=== PATIENT | male | born 1945 | race Caucasian/White ===

== ENCOUNTER 2017-12-02 10:00 | Emergency (ER) | payer MEDICARE, OTHER ==
[~2017-12-02] VITALS: Ht 167.6 cm; Wt 67.1 kg
[~2017-12-02 10:00] MED LIST: Amlodipine Besyl5 MG PO; Bactrim Ds Tab1 EACH PO; CELECOXIB200 MG PO; CYCL10 PO; LISI20 PO; Mupirocin22 GM TP
[2017-12-02 11:16] LABS: Bilirubin, Urine Neg (Neg); Blood, Urine 1+ (Neg); Glucose Qualitative, Urine Neg (Neg); Ketones, Urine 3+ (Neg); Leukocyte Esterase, Urine 1+ (Neg); Nitrite, Urine Neg (Neg); Protein, Urine Neg (Neg); Urobilinogen, Urine NORM (Normal)
[2017-12-02 11:37] LABS: Appearance, Urine Clear (Clear); Color, Urine Yellow (P-Yellow)
[2017-12-02 11:38] LABS: Bacteria Not Seen /hpf; Red Blood Cells, Urine 0-2 /hpf (0-2); Squamous Epithelial Cells Rare /hpf (Few)
[2017-12-02 11:44] LABS: U Amphetamine Screen Not Detected; U Barbituate Screen Not Detected; U Benzodiazapine Screen Not Detected; U Buprenorphine Screen Not Detected; U Cannabinoids Screen Not Detected; U Cocaine Screen Not Detected; U Methadone Screen Not Detected; U Methamphetamine Screen Not Detected; U Opiates Screen Not Detected; U Oxycodone Screen Not Detected; U Phencyclidine Screen Not Detected; U Propoxyphene Screen Not Detected
[2017-12-02 11:52] LABS: BASOPHILS ABSOLUTE AUTO 0.04 K/mm3 (0.00-0.23); BASOPHILS PERCENT AUTO 0 % (0-2); EOSINOPHILS PERCENT AUTO 1 % (0-6); Hematocrit 46.6 % (37.0-53.0); Hemoglobin 15.2 g/dL (13.5-17.5); IMMATURE GRAN ABSOLUTE AUTO 0.04 K/mm3 (0.00-0.10); IMMATURE GRAN PERCENT AUTO 0 % (0-1); LYMPHOCYTES ABSOLUTE AUTO 1.71 K/mm3 (0.84-5.20); LYMPHOCYTES PERCENT AUTO 15 % (21-46); MONOCYTES ABSOLUTE AUTO 0.72 K/mm3 (0.16-1.47); MONOCYTES PERCENT AUTO 6 % (4-13); Mean Corpuscular HGB 29.5 pg (26.0-34.0); Mean Corpuscular HGB Conc 32.6 g/dL (31.5-36.5); Mean Corpuscular Volume 91 fL (80-100); Mean Platelet Volume 10.4 fL (9.1-12.4); NEUTROPHILS ABSOLUTE AUTO 8.89 K/mm3 (1.96-9.15); NEUTROPHILS PERCENT AUTO 77 % (41-73); Platelet Count 321 K/mm3 (150-400); RDW Coefficient Variation 11.8 % (11.7-14.2); RDW Standard Deviation 39.3 fL (35.1-46.3); Red Blood Cell Count 5.15 M/mm3 (4.30-5.90)
[2017-12-02 12:02] LABS: Alanine Aminotransfer (ALT/SGP 15 U/L (12-78); Albumin, Blood 3.7 g/dL (3.4-5.0); Alk Phos 114 U/L (50-136); Anion Gap 9 mmol/L (6-16); Aspartate Aminotrans (AST/SGOT 17 U/L (12-37); Bilirubin, Total 0.6 mg/dL (0.1-1.0); Blood Urea Nitrogen 10 mg/dL (8-24); Bun/Creatinine Ratio 12.5 (12.0-20.0); CO2, Blood 24 mmol/L (21-32); Calcium, Blood 8.9 mg/dL (8.5-10.1); Chloride, Blood 107 mmol/L (98-108); Ethanol (Alcohol), Blood, Med <3 mg/dL; Globulin, Blood 3.7 g/dL (2.2-4.0); Glomerular Filtration Rate >60 (60-); Glucose, Blood 133 mg/dL (70-99); Magnesium, Blood 2.3 mg/dL (1.6-2.4); Potassium, Blood 3.6 mmol/L (3.5-5.5); Sodium, Blood 140 mmol/L (136-145); Total Protein, Blood 7.4 g/dL (6.4-8.2)
== END 2017-12-02 13:02 | disposition home or self-care (01) ==
LOC: ER 10:00
PROVIDERS: Emergency Medicine
DX: F17.200 Nicotine dependence, unspecified, uncomplicated (principal); F12.10 Cannabis abuse, uncomplicated; F10.10 Alcohol abuse, uncomplicated; Z86.73 Personal history of transient ischemic attack (TIA), and cerebral infarction without residual deficits; Z91.030 Bee allergy status; Z79.899 Other long term (current) drug therapy; Z79.2 Long term (current) use of antibiotics
CPT/HCPCS: 70450; 71045; 80053; 81001; 83735; 85025; 87086; 93005; 93010; G0480; J7030

== ENCOUNTER 2018-01-06 16:20 | Inpatient (IN) | payer MEDICARE, OTHER ==
[~2018-01-06] VITALS: Ht 180.3 cm; Wt 63.1 kg
[~2018-01-06 16:20] MED LIST changes: +AMLO5 PT; +ASPI81CH PO; +ATOR40TA PT; +CLOP75 PT; +MODA200 PO
[2018-01-06] MEDS ORDERED: MELA3 PO (16:33)
[2018-01-06] MEDS ORDERED: MIRT15 PO (16:33)
[2018-01-06] MEDS ORDERED: BISA10S PR (16:34)
[2018-01-06] MEDS ORDERED: ALBU3IS INH (16:34)
[2018-01-06] MEDS ORDERED: CVS DISPOSABLE399 ML PR (16:35)
[2018-01-06] MEDS ORDERED: Milk Of Ma400 MG/5 M PO (16:37)
[2018-01-06 18:18] LABS: BASOPHILS ABSOLUTE AUTO 0.05 K/mm3 (0.00-0.23); BASOPHILS PERCENT AUTO 1 % (0-2); EOSINOPHILS ABSOLUTE AUTO 0.64 K/mm3 (0.00-0.68); EOSINOPHILS PERCENT AUTO 8 % (0-6); Hematocrit 43.4 % (37.0-53.0); Hemoglobin 14.1 g/dL (13.5-17.5); IMMATURE GRAN ABSOLUTE AUTO 0.02 K/mm3 (0.00-0.10); IMMATURE GRAN PERCENT AUTO 0 % (0-1); LYMPHOCYTES ABSOLUTE AUTO 1.71 K/mm3 (0.84-5.20); LYMPHOCYTES PERCENT AUTO 21 % (21-46); MONOCYTES ABSOLUTE AUTO 0.74 K/mm3 (0.16-1.47); MONOCYTES PERCENT AUTO 9 % (4-13); Mean Corpuscular HGB 29.8 pg (26.0-34.0); Mean Corpuscular HGB Conc 32.5 g/dL (31.5-36.5); Mean Corpuscular Volume 92 fL (80-100); NEUTROPHILS ABSOLUTE AUTO 4.95 K/mm3 (1.96-9.15); NEUTROPHILS PERCENT AUTO 61 % (41-73); RDW Standard Deviation 40.2 fL (35.1-46.3); Red Blood Cell Count 4.73 M/mm3 (4.30-5.90); White Blood Cell Count 8.11 K/mm3 (4.00-11.30)
[2018-01-06 18:32] LABS: Alanine Aminotransfer (ALT/SGP 33 U/L (12-78); Albumin, Blood 3.3 g/dL (3.4-5.0); Albumin/Globulin Ratio 0.8 (0.8-1.8); Alk Phos 142 U/L (50-136); Anion Gap 8 mmol/L (6-16); Aspartate Aminotrans (AST/SGOT 25 U/L (12-37); Bilirubin, Total 0.5 mg/dL (0.1-1.0); Blood Urea Nitrogen 15 mg/dL (8-24); Bun/Creatinine Ratio 23.1 (12.0-20.0); CO2, Blood 30 mmol/L (21-32); Calcium, Blood 9.2 mg/dL (8.5-10.1); Chloride, Blood 103 mmol/L (98-108); Creatinine, Blood 0.65 mg/dL (0.60-1.20); Globulin, Blood 4.1 g/dL (2.2-4.0); Glomerular Filtration Rate >60 (60-); Glucose, Blood 119 mg/dL (70-99); Potassium, Blood 3.8 mmol/L (3.5-5.5); Sodium, Blood 141 mmol/L (136-145); Total Protein, Blood 7.4 g/dL (6.4-8.2)
[2018-01-06 19:14] LABS: Mean Platelet Volume 12.3 fL (9.1-12.4); Platelet Count 193 K/mm3 (150-400)
[2018-01-07 04:31] LABS: Hematocrit 39.7 % (37.0-53.0); Hemoglobin 12.7 g/dL (13.5-17.5); Mean Corpuscular HGB 28.9 pg (26.0-34.0); Mean Corpuscular Volume 90 fL (80-100); Mean Platelet Volume 12.2 fL (9.1-12.4); Platelet Count 198 K/mm3 (150-400); RDW Coefficient Variation 11.9 % (11.7-14.2); RDW Standard Deviation 39.8 fL (35.1-46.3); Red Blood Cell Count 4.39 M/mm3 (4.30-5.90)
[2018-01-07] MEDS ORDERED: CALMOSEPTINE O3.5 GM TOP (04:36)
[2018-01-07 04:52] LABS: Alanine Aminotransfer (ALT/SGP 27 U/L (12-78); Albumin, Blood 2.7 g/dL (3.4-5.0); Albumin/Globulin Ratio 0.8 (0.8-1.8); Alk Phos 126 U/L (50-136); Anion Gap 5 mmol/L (6-16); Aspartate Aminotrans (AST/SGOT 18 U/L (12-37); Bilirubin, Total 0.5 mg/dL (0.1-1.0); Blood Urea Nitrogen 14 mg/dL (8-24); Bun/Creatinine Ratio 18.2 (12.0-20.0); CO2, Blood 28 mmol/L (21-32); Calcium, Blood 8.3 mg/dL (8.5-10.1); Chloride, Blood 108 mmol/L (98-108); Creatinine, Blood 0.77 mg/dL (0.60-1.20); Globulin, Blood 3.6 g/dL (2.2-4.0); Glomerular Filtration Rate >60 (60-); Glucose, Blood 128 mg/dL (70-99); Potassium, Blood 3.8 mmol/L (3.5-5.5); Sodium, Blood 141 mmol/L (136-145); Total Protein, Blood 6.3 g/dL (6.4-8.2)
[2018-01-09 05:04] LABS: Anion Gap 6 mmol/L (6-16); Blood Urea Nitrogen 16 mg/dL (8-24); Bun/Creatinine Ratio 20.2 (12.0-20.0); CO2, Blood 27 mmol/L (21-32); Calcium, Blood 7.9 mg/dL (8.5-10.1); Chloride, Blood 106 mmol/L (98-108); Creatinine, Blood 0.79 mg/dL (0.60-1.20); Glomerular Filtration Rate >60 (60-); Glucose, Blood 166 mg/dL (70-99); Magnesium, Blood 2.2 mg/dL (1.6-2.4); Phosphorus, Blood 2.9 mg/dL (2.5-4.9); Potassium, Blood 3.6 mmol/L (3.5-5.5); Sodium, Blood 139 mmol/L (136-145); Triglycerides 224 mg/dL (30-160)
[2018-01-10 04:58] LABS: Anion Gap 5 mmol/L (6-16); Blood Urea Nitrogen 12 mg/dL (8-24); Bun/Creatinine Ratio 17.5 (12.0-20.0); CO2, Blood 30 mmol/L (21-32); Calcium, Blood 8.6 mg/dL (8.5-10.1); Chloride, Blood 101 mmol/L (98-108); Creatinine, Blood 0.69 mg/dL (0.60-1.20); Glomerular Filtration Rate >60 (60-); Glucose, Blood 177 mg/dL (70-99); Magnesium, Blood 2.3 mg/dL (1.6-2.4); Phosphorus, Blood 3.1 mg/dL (2.5-4.9); Potassium, Blood 3.4 mmol/L (3.5-5.5); Sodium, Blood 136 mmol/L (136-145)
[2018-01-11 05:37] LABS: Anion Gap 6 mmol/L (6-16); Blood Urea Nitrogen 15 mg/dL (8-24); Bun/Creatinine Ratio 24.5 (12.0-20.0); CO2, Blood 28 mmol/L (21-32); Calcium, Blood 8.6 mg/dL (8.5-10.1); Chloride, Blood 102 mmol/L (98-108); Creatinine, Blood 0.61 mg/dL (0.60-1.20); Glomerular Filtration Rate >60 (60-); Glucose, Blood 163 mg/dL (70-99); Magnesium, Blood 2.3 mg/dL (1.6-2.4); Phosphorus, Blood 3.4 mg/dL (2.5-4.9); Potassium, Blood 3.8 mmol/L (3.5-5.5); Sodium, Blood 136 mmol/L (136-145)
[2018-01-14 05:49] LABS: Anion Gap 7 mmol/L (6-16); Blood Urea Nitrogen 19 mg/dL (8-24); CO2, Blood 27 mmol/L (21-32); Calcium, Blood 8.3 mg/dL (8.5-10.1); Chloride, Blood 104 mmol/L (98-108); Creatinine, Blood 0.79 mg/dL (0.60-1.20); Glomerular Filtration Rate >60 (60-); Glucose, Blood 181 mg/dL (70-99); Magnesium, Blood 2.2 mg/dL (1.6-2.4); Phosphorus, Blood 3.7 mg/dL (2.5-4.9); Potassium, Blood 3.8 mmol/L (3.5-5.5); Sodium, Blood 138 mmol/L (136-145)
[2018-01-14] MEDS ORDERED: HYDR1TAB94 PO (12:07)
== END 2018-01-14 14:16 | DRG 57 ==
LOC: ER 16:20 → MEDS 16:21 → EDPENDDIS 01-14 11:06 → ENPENDDIS 01-14 11:06 → MEDS 01-14 14:16
PROVIDERS: Emergency Medicine; Internal Medicine; Internal Medicine Gastroenterology
PROC: 0DJ08ZZ Inspection of Upper Intestinal Tract, Via Natural or Artificial Opening Endoscopic (ICD-10-PCS; 2018-01-12)
PROC: 0DH63UZ Insertion of Feeding Device into Stomach, Percutaneous Approach (ICD-10-PCS; principal; 2018-01-12 16:00)
DX: I69.391 Dysphagia following cerebral infarction (principal); I69.351 Hemiplegia and hemiparesis following cerebral infarction affecting right dominant side; E86.0 Dehydration; E11.9 Type 2 diabetes mellitus without complications; I10 Essential (primary) hypertension; E78.5 Hyperlipidemia, unspecified; M10.9 Gout, unspecified; G40.909 Epilepsy, unspecified, not intractable, without status epilepticus; M19.90 Unspecified osteoarthritis, unspecified site; Z79.82 Long term (current) use of aspirin; Z87.891 Personal history of nicotine dependence; I69.320 Aphasia following cerebral infarction; R26.89 Other abnormalities of gait and mobility; R13.12 Dysphagia, oropharyngeal phase; Z51.5 Encounter for palliative care; I77.9 Disorder of arteries and arterioles, unspecified
CPT/HCPCS: 36415; 74230; 80048; 80053; 82947; 83735; 84100; 84478; 85025; 85027; 92611; 93005; 93010; 96360; 96361; 99285-25; C1769; G8996; G8997; G8998; J0690; J1650; J2405; J3010; J7030; J7120

== ENCOUNTER → 2018-04-30 | Outpatient (CLI) | payer MEDICARE, OTHER ==
[~2018-04-30] MED LIST changes: +ACET325 PT; +ALBU2.5V5 INH; +ALBU3IS INH; +AMLO5 PO; +ATROPINE 0.01%-10 ML SL; +BISA10S PR; +CALMOSEPTINE O3.5 GM TOP; +CLOP75 PO; +CVS DISPOSABLE399 ML PR; +Fleet Enema132 ML PR; +GAVILAX17 GM PO; +HYDR1TAB94 PO; +LISI20 PT; +LORA1 PO; +LORA2L IV; +MELA3 PO; +MELA3 PT; +METO10 PO; +MIRT15 PO; +MORP20L SL; +MUCINEX FAST-M180 M3 PT; +Milk Of Ma400 MG/5 M PO; +Milk Of Ma400 MG/5 M PT; +Miralax17 GM PT; +Mucinex600 MG PT; +ONDA8 PT; +ONDANSETRON IV; +PARO20 PO; +PARO20 PT; +PROM25S PR; +Transderm-Scop1 EACH TOP; +Zithromax200 MG/5 M PT
[2018-04-30 13:17] LABS: Hematocrit 47.7 % (37.0-53.0); Hemoglobin 15.4 g/dL (13.5-17.5); Mean Corpuscular HGB 30.5 pg (26.0-34.0); Mean Corpuscular HGB Conc 32.3 g/dL (31.5-36.5); Mean Corpuscular Volume 95 fL (80-100); Platelet Count 288 K/mm3 (150-400); RDW Coefficient Variation 12.8 % (11.7-14.2); RDW Standard Deviation 44.1 fL (35.1-46.3); Red Blood Cell Count 5.05 M/mm3 (4.30-5.90); White Blood Cell Count 22.76 K/mm3 (4.00-11.30)
[2018-04-30 13:22] LABS: Appearance, Urine Clear (Clear); Bilirubin, Urine Neg (Neg); Blood, Urine 1+ (Neg); Color, Urine Yellow (P-Yellow); Glucose Qualitative, Urine Neg (Neg); Ketones, Urine Neg (Neg); Leukocyte Esterase, Urine Neg (Neg); Nitrite, Urine Neg (Neg); Protein, Urine 2+ (Neg); Specific Gravity, Urine 1.015 (1.003-1.022); Urobilinogen, Urine NORM (Normal); pH, Urine 6.5 (5.0-8.0)
[2018-04-30 13:30] LABS: Anion Gap 6 mmol/L (6-16); Blood Urea Nitrogen 15 mg/dL (8-24); Bun/Creatinine Ratio 19.9 (12.0-20.0); CO2, Blood 32 mmol/L (21-32); Calcium, Blood 8.8 mg/dL (8.5-10.1); Chloride, Blood 102 mmol/L (98-108); Creatinine, Blood 0.75 mg/dL (0.60-1.20); Glomerular Filtration Rate >60 (60-); Glucose, Blood 156 mg/dL (70-99); Potassium, Blood 3.9 mmol/L (3.5-5.5); Sodium, Blood 140 mmol/L (136-145)
[2018-04-30 13:45] LABS: Bacteria Not Seen /hpf; Mucus Light ({null, 0-Heavy}); Squamous Epithelial Cells Rare /hpf (Few); White Blood Cells, Urine 0-2 /hpf (0-5)
== END | disposition home or self-care (01) ==
LOC: EDSTATUS 10:56 → LAB UVN 13:07
PROVIDERS: Family Medicine
DX: E78.5 Hyperlipidemia, unspecified (principal); N39.0 Urinary tract infection, site not specified; I73.9 Peripheral vascular disease, unspecified; E11.9 Type 2 diabetes mellitus without complications; R11.10 Vomiting, unspecified
CPT/HCPCS: 80048; 81001; 85027; 87086

== ENCOUNTER → 2018-05-05 | Outpatient (CLI) | payer MEDICARE, OTHER ==
[2018-05-05 15:32] LABS: Hematocrit 44.5 % (37.0-53.0); Hemoglobin 14.3 g/dL (13.5-17.5); Mean Corpuscular HGB 30.7 pg (26.0-34.0); Mean Corpuscular HGB Conc 32.1 g/dL (31.5-36.5); Mean Corpuscular Volume 96 fL (80-100); Mean Platelet Volume 12.1 fL (9.1-12.4); Platelet Count 302 K/mm3 (150-400); RDW Coefficient Variation 12.6 % (11.7-14.2); RDW Standard Deviation 44.4 fL (35.1-46.3); Red Blood Cell Count 4.66 M/mm3 (4.30-5.90); White Blood Cell Count 6.93 K/mm3 (4.00-11.30)
[2018-05-05 15:53] LABS: Anion Gap 7 mmol/L (6-16); Blood Urea Nitrogen 14 mg/dL (8-24); Bun/Creatinine Ratio 18.9 (12.0-20.0); CO2, Blood 28 mmol/L (21-32); Calcium, Blood 8.7 mg/dL (8.5-10.1); Chloride, Blood 104 mmol/L (98-108); Creatinine, Blood 0.74 mg/dL (0.60-1.20); Glomerular Filtration Rate >60 (60-); Glucose, Blood 125 mg/dL (70-99); Sodium, Blood 139 mmol/L (136-145)
== END | disposition home or self-care (01) ==
LOC: EDSTATUS 10:57 → LAB UVN 15:26
PROVIDERS: Nurse Practitioner Family
DX: I63.9 Cerebral infarction, unspecified (principal); R11.10 Vomiting, unspecified
CPT/HCPCS: 80048; 85027

== ENCOUNTER 2018-05-15 07:23 | Observation (INO) | payer MEDICARE, OTHER ==
[~2018-05-15] VITALS: Ht 154.9 cm; Wt 58.8 kg
[~2018-05-15 07:23] MED LIST changes: -ACET325 PT; -ALBU2.5V5 INH; -AMLO5 PO; -ATROPINE 0.01%-10 ML SL; -CLOP75 PO; -Fleet Enema132 ML PR; -GAVILAX17 GM PO; -LISI20 PT; -LORA1 PO; -LORA2L IV; -MELA3 PT; -METO10 PO; -MORP20L SL; -MUCINEX FAST-M180 M3 PT; -Milk Of Ma400 MG/5 M PO; -Mucinex600 MG PT; -ONDA8 PT; -ONDANSETRON IV; -PARO20 PO; -PARO20 PT; -Transderm-Scop1 EACH TOP
[2018-05-15 07:41] LABS: BASOPHILS ABSOLUTE AUTO 0.04 K/mm3 (0.00-0.23); BASOPHILS PERCENT AUTO 0 % (0-2); EOSINOPHILS PERCENT AUTO 2 % (0-6); Hematocrit 46.2 % (37.0-53.0); IMMATURE GRAN ABSOLUTE AUTO 0.02 K/mm3 (0.00-0.10); IMMATURE GRAN PERCENT AUTO 0 % (0-1); LYMPHOCYTES ABSOLUTE AUTO 1.14 K/mm3 (0.84-5.20); LYMPHOCYTES PERCENT AUTO 11 % (21-46); MONOCYTES ABSOLUTE AUTO 0.65 K/mm3 (0.16-1.47); MONOCYTES PERCENT AUTO 6 % (4-13); Mean Corpuscular HGB 31.1 pg (26.0-34.0); Mean Corpuscular HGB Conc 32.5 g/dL (31.5-36.5); Mean Corpuscular Volume 96 fL (80-100); Mean Platelet Volume 11.4 fL (9.1-12.4); NEUTROPHILS PERCENT AUTO 80 % (41-73); Platelet Count 349 K/mm3 (150-400); RDW Coefficient Variation 12.2 % (11.7-14.2); RDW Standard Deviation 43.7 fL (35.1-46.3); Red Blood Cell Count 4.82 M/mm3 (4.30-5.90); White Blood Cell Count 10.15 K/mm3 (4.00-11.30)
[2018-05-15 08:00] LABS: Alanine Aminotransfer (ALT/SGP 36 U/L (12-78); Albumin, Blood 3.4 g/dL (3.4-5.0); Albumin/Globulin Ratio 0.9 (0.8-1.8); Alk Phos 97 U/L (50-136); Anion Gap 7 mmol/L (6-16); Aspartate Aminotrans (AST/SGOT 24 U/L (12-37); Bilirubin, Total 0.3 mg/dL (0.1-1.0); Blood Urea Nitrogen 17 mg/dL (8-24); Bun/Creatinine Ratio 22.5 (12.0-20.0); CO2, Blood 29 mmol/L (21-32); Calcium, Blood 8.8 mg/dL (8.5-10.1); Chloride, Blood 104 mmol/L (98-108); Creatinine, Blood 0.76 mg/dL (0.60-1.20); Globulin, Blood 3.8 g/dL (2.2-4.0); Glomerular Filtration Rate >60 (60-); Glucose, Blood 174 mg/dL (70-99); Potassium, Blood 3.8 mmol/L (3.5-5.5); Sodium, Blood 140 mmol/L (136-145); Total Protein, Blood 7.2 g/dL (6.4-8.2); Troponin I <0.015 ng/mL (0.000-0.040)
[2018-05-15] MEDS ORDERED: PARO20 PT (13:34)
[2018-05-15] MEDS ORDERED: ONDA8 PT (13:36)
[2018-05-15] MEDS ORDERED: ACET325 PT (13:40)
[2018-05-15] MEDS ORDERED: MUCINEX FAST-M180 M3 PT (13:42)
[2018-05-17] MEDS ORDERED: Milk Of Ma400 MG/5 M PO (11:19)
[2018-05-17] MEDS ORDERED: GAVILAX17 GM PO (11:21)
[2018-05-17] MEDS ORDERED: PARO20 PO (11:22)
[2018-05-17] MEDS ORDERED: PROM25S PR (11:22)
[2018-05-17] MEDS ORDERED: Fleet Enema132 ML PR (11:23)
[2018-05-17] MEDS ORDERED: ONDA4ODT MM (11:25)
[2018-05-17] MEDS ORDERED: ASPI81CH PO (11:26)
[2018-05-17] MEDS ORDERED: AMLO5 PO (11:26)
[2018-05-17] MEDS ORDERED: CLOP75 PO (11:26)
[2018-05-17] MEDS ORDERED: LISI20 PO (11:26)
[2018-05-17] MEDS ORDERED: MODA200 PO (11:27)
[2018-05-17] MEDS ORDERED: MELA3 PO (11:27)
[2018-05-17] MEDS ORDERED: METO10 PO (11:28)
== END 2018-05-19 15:40 ==
LOC: ER 07:23 → MEDS 07:24 → ER 12:47 → MEDS 12:47 → ENPENDDIS 05-19 10:45 → MEDS 05-19 15:40
PROVIDERS: Physician Assistant
DX: J96.01 Acute respiratory failure with hypoxia (principal); T17.900A Unspecified foreign body in respiratory tract, part unspecified causing asphyxiation, initial encounter; R11.2 Nausea with vomiting, unspecified; I69.391 Dysphagia following cerebral infarction; I67.9 Cerebrovascular disease, unspecified; I10 Essential (primary) hypertension; E78.5 Hyperlipidemia, unspecified; Z87.891 Personal history of nicotine dependence; Z79.82 Long term (current) use of aspirin; Z79.899 Other long term (current) drug therapy; Z74.09 Other reduced mobility
CPT/HCPCS: 36415; 71046; 74177; 80053; 83880; 84484; 85025; 93005; 93010; 94640; 94760; 96365; 96366; 96367; 96372; 96375; 96376; 99285-25; G0378; J0295; J0696; J1650; J2405; J2765; J2920; J7050; Q9967

== ENCOUNTER 2018-06-06 03:51 | Inpatient (IN) | payer MEDICARE, OTHER ==
[~2018-06-06] VITALS: Ht 167.6 cm; Wt 62.5 kg
[~2018-06-06 03:51] MED LIST changes: +ACET325 PT; +AMLO5 PO; +CLOP75 PO; +Fleet Enema132 ML PR; +GAVILAX17 GM PO; +METO10 PO; +MUCINEX FAST-M180 M3 PT; +Milk Of Ma400 MG/5 M PO; +ONDA8 PT; +ONDANSETRON IV; +PARO20 PO; +PARO20 PT
[2018-06-06 04:26] LABS: BASOPHILS ABSOLUTE AUTO 0.09 K/mm3 (0.00-0.23); BASOPHILS PERCENT AUTO 0 % (0-2); EOSINOPHILS PERCENT AUTO 0 % (0-6); Hematocrit 46.5 % (37.0-53.0); IMMATURE GRAN ABSOLUTE AUTO 0.23 K/mm3 (0.00-0.10); IMMATURE GRAN PERCENT AUTO 1 % (0-1); LYMPHOCYTES ABSOLUTE AUTO 0.68 K/mm3 (0.84-5.20); LYMPHOCYTES PERCENT AUTO 2 % (21-46); MONOCYTES ABSOLUTE AUTO 1.18 K/mm3 (0.16-1.47); MONOCYTES PERCENT AUTO 4 % (4-13); Mean Corpuscular HGB 31.4 pg (26.0-34.0); Mean Corpuscular HGB Conc 32.3 g/dL (31.5-36.5); Mean Corpuscular Volume 97 fL (80-100); Mean Platelet Volume 11.6 fL (9.1-12.4); NEUTROPHILS ABSOLUTE AUTO 27.29 K/mm3 (1.96-9.15); NEUTROPHILS PERCENT AUTO 93 % (41-73); Platelet Count 257 K/mm3 (150-400); RDW Coefficient Variation 12.3 % (11.7-14.2); RDW Standard Deviation 44.2 fL (35.1-46.3); Red Blood Cell Count 4.78 M/mm3 (4.30-5.90); White Blood Cell Count 29.47 K/mm3 (4.00-11.30)
[2018-06-06 04:44] LABS: Influenza A Negative (NEGATIVE); Influenza B Negative (NEGATIVE)
[2018-06-06 04:46] LABS: Alanine Aminotransfer (ALT/SGP 37 U/L (12-78); Albumin/Globulin Ratio 0.9 (0.8-1.8); Alk Phos 113 U/L (50-136); Anion Gap 9 mmol/L (6-16); Aspartate Aminotrans (AST/SGOT 24 U/L (12-37); Bilirubin, Total 1.1 mg/dL (0.1-1.0); Blood Urea Nitrogen 17 mg/dL (8-24); Bun/Creatinine Ratio 22.4 (12.0-20.0); CO2, Blood 26 mmol/L (21-32); Chloride, Blood 104 mmol/L (98-108); Creatinine, Blood 0.76 mg/dL (0.60-1.20); Globulin, Blood 3.5 g/dL (2.2-4.0); Glomerular Filtration Rate >60 (60-); Glucose, Blood 162 mg/dL (70-99); Potassium, Blood 4.4 mmol/L (3.5-5.5); Sodium, Blood 139 mmol/L (136-145); Total Protein, Blood 6.5 g/dL (6.4-8.2); Troponin I <0.015 ng/mL (0.000-0.040)
[2018-06-06 04:52] LABS: BAND PERCENT MAN 20 % (0-8); BASOPHILS PERCENT MAN 0 % (0-2); EOSINOPHILS PERCENT MAN 0 % (0-6); LYMPHOCYTES ABSOLUTE MAN 0.58 K/mm3 (0.84-5.20); LYMPHOCYTES PERCENT MAN 2 % (21-46); METAMYELOCYTE ABSOLUTE MAN 0.29 K/mm3 (0.00-0.00); METAMYELOCYTE PERCENT MAN 1 % (0-0); MONOCYTES PERCENT MAN 0 % (4-13); NEUTROPHILS ABSOLUTE MAN 28.58 K/mm3 (1.96-9.15); SEG NEUTROPHILS PERCENT MAN 77 % (41-73); TOTAL CELLS COUNTED 100
[2018-06-06 06:13] LABS: Base Excess Venous -0.6 mmol/L; Bicarbonate Venous 22.5 mmol/L (24.0-30.0); PCO2 Venous 54.3 mmHg (38-42); PO2 Venous 43.6 mmHg (38-42); pH Blood Venous 7.29 (7.34-7.37)
[2018-06-06 06:23] LABS: International Normalized Ratio 1.04; Prothrombin Time Results 10.7 Sec (9.7-11.5)
--- NOTE | 2018-06-06 10:35 | NUR ---
NOTE PT ARRIVED FROM ER ABOUT 0800 ACCOMPANIED BY RN. PT RESTING WITH EYES CLOSED. TRANSFERED TO NEW BED WITH SLIDER SHEET AND 3 ASSIST. PT SOILED FRESHENED UP AND NEW BEDDING PLACED. PT ABLE TO HELP TURN HIMSELF. PT COUGHED UP A LARGE SPUTUM THAT HE SPIT INTO THE BED. SPUTUM YELLOW/GREEN. ELEVATED TEMP ON ADMIT. ST ON MONITOR. ATTEMPTED TO CALL PT SON. SON, GUERA, MAIL BOX IS FULL. UNABLE TO LEAVE A MESSAGE. CONTINUE POT.
--- NOTE | 2018-06-06 10:38 | NUR ---
[facility] CALL CALLED [facility] TO GET A REPORT AND ASK SEVERAL QUESTIONS. STAFF CLARIFIED THAT PT DNP LIMITED IS NOTHING EXCEPT MONITORING. NO CPR, INTUBATION, MEDICATIONS OR AIRWAY SUPPORT. STAFF RELATED THAT PT AHS NOT BEEN TOLERATING HIS TUBEFEEDING WELL. MULTIPLE EMESIS AFTER BOLUS FEEDING OF FIBER SOURCE. PT IS TO BE RECEIVING 250 ML BOLUS QID BUT HE STOPS THEM AFTER ABOUT 100ML. HE THEN EXPERIENCES HICCUPS THAT LAST FOR SEVERAL HOURS. HE RECEIVES ZOFRAN ROUTINELY BUT REGLAN PRN. STAFF HAVE BEEN TALKING WITH PT SON ABOUT CODE STATUS. PT HAS AGREED TO COMFORT CARE. SON HAS NOT. LAST BM 06/05/2018. CONTINUE POT.
[2018-06-06] MEDS ORDERED: ATOR40TA PT (10:57)
[2018-06-06] MEDS ORDERED: AMLO5 PT (10:57)
[2018-06-06] MEDS ORDERED: LISI20 PT (10:58)
[2018-06-06] MEDS ORDERED: CLOP75 PT (10:58)
[2018-06-06] MEDS ORDERED: MELA3 PT (10:59)
[2018-06-06] MEDS ORDERED: Mucinex600 MG PT (11:03)
[2018-06-06 21:35] LABS: Source, Urine Voided
[2018-06-06 21:40] LABS: Appearance, Urine Clear (Clear); Bilirubin, Urine Neg (Neg); Blood, Urine 1+ (Neg); Color, Urine Amber (P-Yellow); Glucose Qualitative, Urine Neg (Neg); Ketones, Urine Neg (Neg); Leukocyte Esterase, Urine 1+ (Neg); Nitrite, Urine Neg (Neg); Protein, Urine 2+ (Neg); Urobilinogen, Urine 1+ (Normal)
[2018-06-06 21:46] LABS: Bacteria Mod /hpf; Mucus Light ({null, 0-Heavy}); Red Blood Cells, Urine 0-2 /hpf (0-2); Squamous Epithelial Cells Few /hpf (Few)
[2018-06-07 04:26] LABS: BASOPHILS ABSOLUTE AUTO 0.07 K/mm3 (0.00-0.23); BASOPHILS PERCENT AUTO 0 % (0-2); EOSINOPHILS ABSOLUTE AUTO 0.13 K/mm3 (0.00-0.68); EOSINOPHILS PERCENT AUTO 1 % (0-6); Hematocrit 30.8 % (37.0-53.0); Hemoglobin 9.9 g/dL (13.5-17.5); IMMATURE GRAN ABSOLUTE AUTO 0.06 K/mm3 (0.00-0.10); IMMATURE GRAN PERCENT AUTO 0 % (0-1); LYMPHOCYTES ABSOLUTE AUTO 1.53 K/mm3 (0.84-5.20); LYMPHOCYTES PERCENT AUTO 10 % (21-46); MONOCYTES ABSOLUTE AUTO 1.03 K/mm3 (0.16-1.47); MONOCYTES PERCENT AUTO 6 % (4-13); Mean Corpuscular HGB 31.5 pg (26.0-34.0); Mean Corpuscular HGB Conc 32.1 g/dL (31.5-36.5); Mean Corpuscular Volume 98 fL (80-100); Mean Platelet Volume 12.2 fL (9.1-12.4); NEUTROPHILS ABSOLUTE AUTO 13.15 K/mm3 (1.96-9.15); NEUTROPHILS PERCENT AUTO 82 % (41-73); Platelet Count 221 K/mm3 (150-400); RDW Coefficient Variation 12.8 % (11.7-14.2); RDW Standard Deviation 46.1 fL (35.1-46.3); Red Blood Cell Count 3.14 M/mm3 (4.30-5.90); White Blood Cell Count 15.97 K/mm3 (4.00-11.30)
[2018-06-07 04:48] LABS: Alanine Aminotransfer (ALT/SGP 19 U/L (12-78); Albumin, Blood 2.1 g/dL (3.4-5.0); Albumin/Globulin Ratio 0.7 (0.8-1.8); Alk Phos 74 U/L (50-136); Anion Gap 7 mmol/L (6-16); Aspartate Aminotrans (AST/SGOT 19 U/L (12-37); Bilirubin, Total 0.8 mg/dL (0.1-1.0); Blood Urea Nitrogen 15 mg/dL (8-24); Bun/Creatinine Ratio 18.2 (12.0-20.0); CO2, Blood 27 mmol/L (21-32); Calcium, Blood 7.9 mg/dL (8.5-10.1); Chloride, Blood 107 mmol/L (98-108); Creatinine, Blood 0.82 mg/dL (0.60-1.20); Globulin, Blood 2.9 g/dL (2.2-4.0); Glomerular Filtration Rate >60 (60-); Glucose, Blood 124 mg/dL (70-99); Magnesium, Blood 2.1 mg/dL (1.6-2.4); Phosphorus, Blood 3.1 mg/dL (2.5-4.9); Potassium, Blood 3.7 mmol/L (3.5-5.5); Sodium, Blood 141 mmol/L (136-145)
--- NOTE | 2018-06-07 06:35 | NUR ---
SHIFT SUMMARY- PT HAS REMAINED AT BASELINE ORIENTATION THROUGHOUT SHIFT, IS ABLE TO COMMUNICATE BY SHAKING HIS HEAD AND SPEAKING FEW WORDS. VSS. HAS BEEN VERY PLEASANT AND COOPERATIVE WITH CARE. PT CONTINUES TO HAVE GENERALIZED WEAKNESS, BUT REMAINS WEAKER ON THE L SIDE. PT MEDICATED ONCE FOR NAUSEA LAST NIGHT THAT CAME ABOUT AFTER LYING ALMOST FLAT TO TURN AND CHANGE ATTENDS, NAUSEA DECREASED WITH MEDICATION AND DID NOT RESULT IN EMESIS. ELEVATED TEMPERATURE LAST NIGHT OF 101.7 THAT DECREASED WITH TYLENOL. PT HAS DENIED PAIN THROUGHOUT THE NIGHT. PT AND FAMILY REFUSING TUBE FEEDINGS AT THIS TIME, DUE TO THE PAIN AND NAUSEA THAT THEY CAUSE. DAYSHIFT RN STATES THAT DIETARY IS AWARE OF GI UPSET WITH ATTEMPTS TO ADMINISTER TUBE FEEDINGS. PT CONTINUES TO TOLERATE WATER AND MEDICATION FLUSHES THROUGH PEG TUBE WELL. NO OTHER CHANGES NOTED FROM INITIAL ASSESSMENT. WILL CONTINUE TO MONITOR AND REPORT TO ONCOMING SHIFT RN. BED IN LOW POSITION, CALL LIGHT IN REACH.
--- NOTE | 2018-06-07 08:30 | NUR ---
PATIENT GIVEN MEDS THROUGH PEG TUBE WHILE SITTING UP AT 50 DEG AND DURING FLUSH PATIENT BEGAN CHOCKING AND COUGHING. PATIENT SAT UP FURTHER AND SUCTION USED BY PATIENT WITH ASSISTANCE. DR. HADDAD NOTIFIED OF THIS. TUBE FEEDS STILL ON HOLD AT PATIENT AND FAMILY REQUEST. WILL TRY TO GIVE MEDS SLOWER AND WITH LESS VOLUME FOR NEXT USE.
--- NOTE | 2018-06-07 12:38 | NUR ---
PATIENT GIVEN TYLENOL THROUGH PEG TUBE AND TOLERATED WELL THIS TIME. PUSHED WATER AND MEDS SLOWER AND ELEVATED HOB TO 55 DEG.
[2018-06-07 17:06] LABS: Vancomycin, Trough 12.5 ug/mL (5.0-10.0)
--- NOTE | 2018-06-07 18:36 | NUR ---
PATIENT MOSTLY NONVERBAL, BUT ABLE TO ANSWER YES/NO QUESTIONS. TUBE FEEDS CONTINUE TO BE ON HOLD. PALLIATIVE CARE NURSE, SPEECH THERAPIST AND AUTOMOTIVE LOT ATTENDANT FOLLOWING PATIENT. ST INSTRUCTED TO NOT USE PLUNGER WHEN GIVING ANYTHING THROUGH PEG TUBE, JUST TO USE GRAVITY. GRAND DAUGHTER BY THIS EVENING AND IS WONDERING ABOUT ALTERNATE NUTRITION. 2 IV SITES TO L FA WNL, LR AT 100ML/HR INFUSING. POSITIVE BLOOD CX THIS AM, PATIENT IS ON VANCO AND ZOSYN. PATIENT MAINTAINING SATS ON RA TODAY, VSS. BLOOD SUGARS NOW STABLE SO CHEM STICKS STOPPED. CALM AND COOPERATIVE WITH CARE, TURNING Q2 HOURS.
--- NOTE | 2018-06-07 18:43 | NUR ---
Daphnie stephanie grandchildren in to visit. Brief conversationn with family. 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 She was able to give history. She states pt has been failing more recently. He is depressed at leaving his home and garden. He hates living in a facility. She thinks he has lost his will to live. She relays poor tolerance of tube feeds. Her father..the patients son could not make it in tonight because he had to work late. She relayed he is struggling with his fatheres decline and depression. We reviewed hospice care. We reviewed holistic approach to mind body and spirit and family care. Review of suffering and tolerance of care. Advised I would meet with her father if she wants to help with the struggle of making decisons. Suggest she use statements that are not all or nothing. Gave her the hard choice book for her father. She feels hospice would be best. Will review pain and nause and viseral pain. pt may benefit from an antispasmotic. Reviwe possible continuous feeds versus bolus.will ask for pet therapy at the snf.
[2018-06-08 05:04] LABS: BASOPHILS ABSOLUTE AUTO 0.07 K/mm3 (0.00-0.23); BASOPHILS PERCENT AUTO 1 % (0-2); EOSINOPHILS ABSOLUTE AUTO 0.25 K/mm3 (0.00-0.68); EOSINOPHILS PERCENT AUTO 3 % (0-6); Hematocrit 33.2 % (37.0-53.0); IMMATURE GRAN ABSOLUTE AUTO 0.02 K/mm3 (0.00-0.10); IMMATURE GRAN PERCENT AUTO 0 % (0-1); LYMPHOCYTES ABSOLUTE AUTO 1.47 K/mm3 (0.84-5.20); LYMPHOCYTES PERCENT AUTO 16 % (21-46); MONOCYTES PERCENT AUTO 9 % (4-13); Mean Corpuscular HGB 31.5 pg (26.0-34.0); Mean Corpuscular HGB Conc 33.1 g/dL (31.5-36.5); Mean Platelet Volume 11.6 fL (9.1-12.4); NEUTROPHILS ABSOLUTE AUTO 6.33 K/mm3 (1.96-9.15); NEUTROPHILS PERCENT AUTO 71 % (41-73); Platelet Count 268 K/mm3 (150-400); RDW Standard Deviation 41.7 fL (35.1-46.3); Red Blood Cell Count 3.49 M/mm3 (4.30-5.90); White Blood Cell Count 8.94 K/mm3 (4.00-11.30)
[2018-06-08 05:08] LABS: Mean Corpuscular Volume 95 fL (80-100)
[2018-06-08 05:20] LABS: Anion Gap 10 mmol/L (6-16); Blood Urea Nitrogen 9 mg/dL (8-24); Bun/Creatinine Ratio 12.4 (12.0-20.0); CO2, Blood 26 mmol/L (21-32); Chloride, Blood 105 mmol/L (98-108); Creatinine, Blood 0.72 mg/dL (0.60-1.20); Glomerular Filtration Rate >60 (60-); Glucose, Blood 96 mg/dL (70-99); Magnesium, Blood 2.1 mg/dL (1.6-2.4); Phosphorus, Blood 3.7 mg/dL (2.5-4.9); Potassium, Blood 3.3 mmol/L (3.5-5.5); Sodium, Blood 141 mmol/L (136-145)
--- NOTE | 2018-06-08 06:24 | NUR ---
SHIFT SUMMARY PT A&O, ABLE TO ANSWER Y/N QUESTIONS, MAKING SOUNDS, AND SAYING FEW WORDS. PT LUNG SOUNDS DIM T/O W/ CRACKLES L LOBE. SPO2 > 92% ON RA. MONITOR SHOWS NSR. VSS. PEG TUBE L QUAD CLAMPED. PT NPO, W/ TF HELD PER INSTRUCTION D/T PT INTOLERANCE. MEDICATIONS GIVEN IN PEG TUBE BY GRAVITY ONLY. PT INCONTINENT OF URINE AND STOOL, WEARING ATTENDS. PRN IBRAHIMA CARE AND ATTENDS CHANGES PROVIDED W/ REPOSITIONING & PILLOWS PLACED FOR COMFORT. FOAM HEEL PROTECTORS TO BILAT FEET FOR PROTECTION. PT BACKSIDE RED. SCD'S ON BILAT CALVES. LR GTT INFUSING PER ORDERS. PT ABLE TO SLEEP MAJORITY OF NIGHT. WILL CONTINUE TO MONITOR AND PROVIDE CARE UNTIL REPORT OFF TO DAY SHIFT RN.
--- NOTE | 2018-06-08 10:18 | NUR ---
DISCUSSED WITH PATIENT ABOUT TRYING A CONTINUOUS FEED INSTEAD OF BOLUS FEEDING TO SEE IF HE COULD TOLERATE. HE REFUSED0 MEDS THROUGH PEG TUBE THIS AM AND IS REFUSING TO TRY CONTINUOUS FEED ALSO.
--- NOTE | 2018-06-08 12:30 | NUR ---
Palliative Care Visit made to determine pt's goals of care and wishes. In addition to pt, his son Indio was present with a friend and snf thru the visit another family member (hayden-in-law?) arrived and conversation repeated. I introduced myself and the purpose of my visit. I spoke with pt about Dr and RN's concerns and desire to clarify what type of care he wanted. Pt is able to nod yes and no appropriately in answer to questions and I asked questions in multiple ways to be certain I and family understood correctly what his wishes were. After lengthy discussion of the care he is receiving & declining, options offered to pt & he confirms multiple times that he wants comfort care and does not want anything put in his g-tube, to include d/c of IV fluids and IV antibiotics. His son is supportive of pt's decision. Conversation between family members and frequent repeat questions to pt from them also seemed to upset pt and he became tearful. Pt does not appear to like being the center of attention or fussed over. When I asked him if that was true, he nodded yes. I asked him if he would like us to stop asking quesitons and discussing his care further and he nodded yes. Friend of family continued to ask questions and ask if Dr could come by and tell them what to expect. I reviewed the anticipated changes in orders and care. Friend seemed to think pt's demise would happen immediately and I reviewed anticipated progression in light of pt is well hydrated at this time and had nutritional input up until today. Report on visit to , who came to meet with family after my visit. Update on all of above given to RN and dietitian seeing pt. Verbal orders for Comfort Care entered with patient's RN input also.
--- NOTE | 2018-06-08 13:00 | NUR ---
PATIENT NOW ON COMFORT CARE. 14F COUDE CATHETER PLACED AT PATIENT REQUEST. PATIENT DENIES ANY PAIN OR DISCOMFORT. WITHDRAWN AND TEARFUL AT TIMES. PATIENT WOULD LIKE TO CONTINUE TO WEAR HIS SCD'S SO THEY WERE LEFT ON. BARRIER CREAM APPLIED TO SORE ON PENIS AND ATTENDS CHANGED. TELE AND IV FLUIDS D/C'D. CALL LIGHT WITHIN REACH AND PATIENT INSTRUCTED TO CALL FOR ASSISTANCE. DENIES ANY NEEDS AT THIS TIME.
--- NOTE | 2018-06-08 16:54 | NUR ---
PATIENT DENIES ANY PAIN OR DISCOMFORT. DENIES ANY NAUSEA OR ABDOMINAL PAIN. CALL LIGHT WITHIN REACH. PATIENT INSTRUCTED TO CALL FOR ASSISTANCE.
--- NOTE | 2018-06-08 16:56 | NUR ---
PATIENT SLEEPING AT THIS TIME. NO S/S OF PAIN OR DISTRESS.
--- NOTE | 2018-06-08 18:40 | NUR ---
GRANDDAUGHTER JUST LEFT TO GO HOME FOR THE NIGHT. PATIENT DENIES ANY PAIN OR NAUSEA. DENIES ANY OTHER NEEDS. WANTED LIGHT OFF AND WANTS TO SLEEP. CALL LIGHT WITHIN REACH.
--- NOTE | 2018-06-08 19:25 | NUR ---
Mr. Hong appears frail and weak. He is difficult to understand. He indicated to me that he wanted his son, Abrahan, called. T/C to abrahan from bedside table. Abrahan was tearful and told me he had just left hospital after decision made for comfort-care for pt. He was making phone calls and trying to calm down. I provided bereavement grief counsellor and advised self-care. Abrahan responded well. Mr. Hong slept peacefully throughout conversation. He declined prayer. I will remain available to pt and family.
--- NOTE | 2018-06-09 06:45 | NUR ---
SHIFT SUMMARY- PT HAS SLEPT THROUGHOUT MUCH OF THE NIGHT. COMFORT NEEDS MET PER REQUEST OF PATIENT. PICTURE BOARD PROVIDED FOR PATIENT TO EXPRESS NEEDS MORE EASILY TO STAFF. PT MEDICATED MULTIPLE TIMES FOR PAIN AND NAUSEA PER HIS REQUEST. PT REQUESTING SIPS OF ICE WATER, PT COUGHED WITH FIRST SIPS, BUT THEN TOLERATED WELL. PT CURRENTLY SLEEPING WITH NO S/SX OF DISTRESS. RESPIRATIONS ARE EVEN AND UNLABORED. WILL CONTINUE TO MONITOR AND REPORT TO ONCOMING RN.
--- NOTE | 2018-06-09 09:30 | NUR ---
PAL CARE COMFORT CARE VISIT. Pt asleep initially upon entering the room. He woke easily to my voice. I asked if he would like his blinds opened for some light and he indicated no, with shake of head. I asked if he was hurting and he said yes, and pointed to epigastric area. Spoke to RN for current update and discussed medications for comfort with her. No family visiting at this time but RN states they were in early this am.
--- NOTE | 2018-06-09 09:37 | NUR ---
NURSING PCU DAYSHIFT: Assumed care of pt at approx 0700. Alert though sleepy this a.m. Nonverbal though is able to communicate using gestures and a word board. Pt remains comfort care status at this time. Denies any pain or discomfort. Family at bedside this a.m., all questions answered, plan of care discussed. Pt denies any current needs. Call light in reach and pt has demonstrated ability to use. PCT currently at bedside addressing providing personal care. Cont to monitor for any needs or changes in pt condition.
--- NOTE | 2018-06-09 12:06 | NUR ---
NURSING PCU DISCHARGE TO SNF SUMMARY: No acute changes noted t/o the a.m. [facility] to SNF d/o received and discharge plan arranged by home care specialist. [facility] has been scheduled for 1230, family notifed by careers adviser. Pt denies any current questions/needs, belongings have been pack, call light in reach. Cont to monitor until discharge is complete.
[2018-06-09] MEDS ORDERED: LORA1 PO (13:16)
[2018-06-09] MEDS ORDERED: ALBU2.5V5 INH (13:16)
[2018-06-09] MEDS ORDERED: ATROPINE 0.01%-10 ML SL (13:18)
[2018-06-09] MEDS ORDERED: MORP20L SL (13:19)
[2018-06-09] MEDS ORDERED: LORA2L IV (13:21)
[2018-06-09] MEDS ORDERED: Transderm-Scop1 EACH TOP (13:22)
== END 2018-06-09 13:15 | disposition hospice, inpatient (51) | DRG 871 ==
LOC: ER 03:51 → PCU 07:40
PROVIDERS: Emergency Medicine; Family Medicine; ADMIT Family Medicine
DX: A41.9 Sepsis, unspecified organism (principal); J96.01 Acute respiratory failure with hypoxia; J69.0 Pneumonitis due to inhalation of food and vomit; R65.21 Severe sepsis with septic shock; N39.0 Urinary tract infection, site not specified; Z51.5 Encounter for palliative care; Z66 Do not resuscitate; E78.5 Hyperlipidemia, unspecified; I10 Essential (primary) hypertension; Z93.1 Gastrostomy status; Z91.038 Other insect allergy status; I69.920 Aphasia following unspecified cerebrovascular disease; I69.922 Dysarthria following unspecified cerebrovascular disease; Z79.02 Long term (current) use of antithrombotics/antiplatelets; Z79.82 Long term (current) use of aspirin; Z79.899 Other long term (current) drug therapy; Z87.891 Personal history of nicotine dependence
CPT/HCPCS: 36415; 71045; 74176; 80048; 80053; 80202; 81001; 82803; 82947; 83605; 83735; 84100; 84484; 85025; 85610; 85730; 87040; 87086; 87804; 93005; 93010; 94640; 94760; 96365; 96367; 99285-25; C9113; J2405; J2543; J3370; J7050; J7120